=== PATIENT | male | born 1940 | race Asian ===

== ENCOUNTER 2017-09-30 08:23 | Outpatient (CLI) | payer OTHER | END 2017-09-30 22:03 | disposition home or self-care (01) | LOC: LABW 08:23 | DX: K64.0 First degree hemorrhoids (principal) | CPT/HCPCS: 82272 ==

== ENCOUNTER 2018-09-07 10:56 | Outpatient (CLI) | payer OTHER | END 2018-09-07 23:45 | disposition home or self-care (01) | LOC: RAD 10:56 | DX: M54.6 Pain in thoracic spine (principal) ==

== ENCOUNTER 2019-02-23 14:50 | Outpatient (CLI) | payer OTHER | END 2019-02-23 23:13 | disposition home or self-care (01) | LOC: LABW 14:50 | DX: D64.89 Other specified anemias (principal) | CPT/HCPCS: 82272 ==

== ENCOUNTER 2022-06-18 13:31 | Outpatient (CLI) | payer OTHER | END 2022-06-18 19:51 | disposition home or self-care (01) | LOC: LABW 13:31 | PROVIDERS: ATTEND Nurse Practitioner Family | DX: D64.89 Other specified anemias (principal) | CPT/HCPCS: 82272 ==